=== PATIENT | female | born 1970 | race Caucasian/White ===

== ENCOUNTER 2017-11-04 18:15 | Emergency (ER) | payer MEDICARE ==
[~2017-11-04] VITALS: Ht 152.4 cm; Wt 63.5 kg
[~2017-11-04 18:15] MED LIST: Fioricet 325 MG1 TAB PO
[2017-11-04] MEDS ORDERED: TOPROL XL25 MG PO (18:26)
[2017-11-04] MEDS ORDERED: ESTRACE1 M1 PO (18:27)
[2017-11-04] MEDS ORDERED: ZANAFLEX4 M1 PO (18:27)
[2017-11-04] MEDS ORDERED: Synthroid,Levo25 MCG PO (18:28)
[2017-11-04] MEDS ORDERED: DOXEPIN HCL10 MG PO (18:28)
[2017-11-04] MEDS ORDERED: CYMBALTA60 MG PO (18:28)
[2017-11-04] MEDS ORDERED: NAPROSYN500 MG PO (20:34)
[2017-11-04] MEDS ORDERED: CYCLOBENZAPRINE10 MG PO (20:34)
== END 2017-11-04 20:54 | disposition home or self-care (01) ==
LOC: ED 18:15
DX: S30.0XXA Contusion of lower back and pelvis, initial encounter (principal); M54.2 Cervicalgia; Z90.710 Acquired absence of both cervix and uterus; Z98.890 Other specified postprocedural states; Z79.899 Other long term (current) drug therapy; Z88.5 Allergy status to narcotic agent; W00.2XXA Other fall from one level to another due to ice and snow, initial encounter; Y93.89 Activity, other specified; Y92.89 Other specified places as the place of occurrence of the external cause; Y99.9 Unspecified external cause status